=== PATIENT | female | born 1960 | race Caucasian/White ===

== ENCOUNTER 2016-09-25 09:22 | Emergency (ER) | payer OTHER | END 2016-09-25 10:35 | disposition home or self-care (01) | LOC: ER1 09:22 | DX: G43.909 Migraine, unspecified, not intractable, without status migrainosus (principal) | CPT/HCPCS: 96372; 99283; J1200; J1885; J2765 ==

== ENCOUNTER 2020-07-10 16:27 | Emergency (ER) | payer OTHER | END 2020-07-10 17:59 | disposition left against medical advice (07) | LOC: ER1 16:27 | DX: Z53.21 Procedure and treatment not carried out due to patient leaving prior to being seen by health care provider (principal) ==